=== PATIENT | female | born 1955 | race African-American/Black ===

== ENCOUNTER 2020-08-12 07:00 | Observation (INO) | payer MEDICARE ==
[2020-08-08 12:17] LABS: BASOPHILS % 0.7 % (0.0-1.0); EOSINOPHILS # (AUTO) 0.1 (0.0-0.4); EOSINOPHILS % 1.4 % (0.0-6.0); HEMATOCRIT 41.6 % (34.2-44.1); HEMOGLOBIN 13.8 g/dL (12.0-16.0); LYMPHOCYTES # (AUTO) 1.5 (1.0-3.2); LYMPHOCYTES % 33.9 % (18.0-39.1); MEAN CORPUSCULAR HEMOGLOBIN 25.8 pg (28-32); MEAN CORPUSCULAR HGB CONC 33.2 g/dL (31-35); MEAN CORPUSCULAR VOLUME 77.8 fL (81-99); MONOCYTES # (AUTO) 0.5 (0.2-0.8); MONOCYTES % 10.5 % (4.4-11.3); NEUTROPHILS # (AUTO) 2.3 (2.1-6.9); NEUTROPHILS % 53.3 % (38.7-80.0); PLATELET COUNT 303 x10e3/uL (140-360); RED BLOOD COUNT 5.35 x10e6/uL (3.6-5.1); RED CELL DISTRIBUTION WIDTH 15.2 % (11.7-14.4)
[2020-08-08 12:35] LABS: ANION GAP 14.5 mmol/L (8-16); BLOOD UREA NITROGEN 8 mg/dL (7-26); BUN/CREATININE RATIO 10 (6-25); CALCIUM 9.6 mg/dL (8.4-10.2); CARBON DIOXIDE 25 mmol/L (22-29); CHLORIDE 107 mmol/L (98-107); CREATININE, SERUM 0.77 mg/dL (0.57-1.11); EST GLOMERULAR FILTRATION RATE > 60 ML/MIN (60-); GLUCOSE 101 mg/dL (74-118); POTASSIUM 3.5 mmol/L (3.5-5.1); SODIUM 143 mmol/L (136-145)
[~2020-08-12] VITALS: Ht 160 cm; Wt 96.4 kg
[~2020-08-12 07:00] MED LIST: AMLODIPINE BESY10 MG PO; ASPIRIN81 MG PO; CEFAZOLIN SOD 1 GM/NS 50ML 100 ML IV ONE; CELECOXIB 200 MG CAP ONE; DEXAMETHASONE SOD PHOS 10 MG/1 ML VIAL ONE; DIOVAN160 MG PO; FERROUS GLUCONATE PO; GABAPENTIN 300 MG CAP ONE; HYDROCHLOROTHIA25 MG PO; SIMVASTATIN10 MG PO; SODIUM CHLORIDE 0.9% 500ML 500 ML ONE; TRANEXAMIC ACID 1,000 MG/10 ML ML ONE; VANCOMYCIN HCL 1,000 MG ONE
[2020-08-12] MEDS ORDERED: BUPIVACAINE 7.5MG/ML /DEXTROSE 82.5MG/ML 2 ML AMP INJ ONE (07:27)
[2020-08-12] MEDS ORDERED: ROPIVACAINE 246.25 MG, EPINEPHRINE HCL 1:1000 1ML 0.5 MG, CLONIDINE HCL 0.08 MG, KETORO... INJ ONE ×5 (07:30)
[2020-08-12] MEDS ORDERED: HYDROCODONE/APAP 5MG-325MG TAB PO PRN (09:30)
[2020-08-12] MEDS ORDERED: ONDANSETRON HCL INJ 2MG/ML 2ML 2 MG/ML VIAL IV PRN (09:30)
[2020-08-12] MEDS ORDERED: ACETAMINOPHEN 650 MG SUPP PR PRN (09:30)
[2020-08-12] MEDS ORDERED: KETOROLAC TROMETHAMINE 30 MG/ML VIAL IV PRN (09:30)
[2020-08-12] MEDS ORDERED: DIPHENHYDRAMINE HCL INJ 50 MG/ML VIAL IV PRN (09:30)
[2020-08-12] MEDS ORDERED: DOCUSATE SODIUM 100 MG CAP PO PRN (09:30)
[2020-08-12 12:05] VITALS: BP 136/77
[2020-08-12 12:06] VITALS: BP 136/77
[2020-08-12] MEDS: SODIUM CHLORIDE 0.9% 1000ML 1,000 ML IV SCH ×2 (12:43→21:24)
[2020-08-12] MEDS: ACETAMINOPHEN 1000 MG/100 ML IV SCH ×2 (12:44→18:07)
[2020-08-12 16:00] VITALS: BP 134/82
[2020-08-12] MEDS ORDERED: DEXAMETHASONE SOD PHOS INJ 4 MG/ML VIAL ONE (16:21)
[2020-08-12] MEDS ORDERED: LIDOCAINE HCL 2% LOCAL INJ 5 ML SDV VIAL INJ ONE (16:21)
[2020-08-12] MEDS ORDERED: PROPOFOL IV EMULSION 10 MG/ML 20 ML VIAL ONE (16:21)
[2020-08-12] MEDS ORDERED: EPHEDRINE SULFATE INJ 50 MG/ML VIAL ONE (16:21)
[2020-08-12] MEDS ORDERED: ONDANSETRON HCL INJ 2MG/ML 2ML 2 MG/ML VIAL ONE (16:21)
[2020-08-12] MEDS ORDERED: POVIDONE IODINE 0.05% 0.05 % ML PO ONE (16:21)
[2020-08-12] MEDS ORDERED: ROPIVACAINE 0.5% 5 MG/ML 30 ML SDV ONE (16:30)
[2020-08-12] MEDS ORDERED: MIDAZOLAM HCL 2 MG/2 ML VIAL ONE (16:34)
[2020-08-12] MEDS ORDERED: FENTANYL CITRATE/PF 100MCG/2 ML INJ ONE (16:34)
[2020-08-12] MEDS: ASPIRIN 325 MG TAB PO SCH (16:52)
[2020-08-12] MEDS: CELECOXIB 100 MG CAP PO SCH (16:52)
[2020-08-12] MEDS: CEFAZOLIN SOD 1 GM/NS 50ML 50 ML IV SCH ×2 (16:52→21:24)
[2020-08-12 20:00] VITALS: BP 134/82
[2020-08-12] MEDS ORDERED: SIMVASTATIN 20 MG TAB PO SCH (21:00)
[2020-08-12] MEDS ORDERED: ZOLPIDEM TARTRATE 5 MG TAB PO PRN (21:00)
[2020-08-12] MEDS ORDERED: NON-FORMULARY MEDICATION (Simvastatin 10 MG) PO SCH (21:00)
[2020-08-12 21:23] VITALS: BP 138/81
[2020-08-12] MEDS: HYDROCODONE/APAP 7.5MG-325MG 1 EA TAB PO PRN (21:24)
[2020-08-13] MEDS: ACETAMINOPHEN 1000 MG/100 ML IV SCH ×2 (00:53→05:22)
[2020-08-13 01:23] VITALS: BP 122/81
[2020-08-13 05:16] VITALS: BP 121/77
[2020-08-13 05:16] LABS: BASOPHILS % 0.1 % (0.0-1.0); HEMATOCRIT 33.3 % (34.2-44.1); HEMOGLOBIN 11.2 g/dL (12.0-16.0); LYMPHOCYTES % 14.6 % (18.0-39.1); MEAN CORPUSCULAR HEMOGLOBIN 25.7 pg (28-32); MEAN CORPUSCULAR HGB CONC 33.6 g/dL (31-35); MEAN CORPUSCULAR VOLUME 76.6 fL (81-99); MONOCYTES # (AUTO) 0.5 (0.2-0.8); MONOCYTES % 7.4 % (4.4-11.3); NEUTROPHILS # (AUTO) 5.5 (2.1-6.9); NEUTROPHILS % 77.6 % (38.7-80.0); PLATELET COUNT 226 x10e3/uL (140-360); RED BLOOD COUNT 4.35 x10e6/uL (3.6-5.1); RED CELL DISTRIBUTION WIDTH 14.6 % (11.7-14.4)
[2020-08-13] MEDS: SODIUM CHLORIDE 0.9% 1000ML 1,000 ML IV SCH (05:22)
[2020-08-13 05:35] LABS: ALANINE AMINOTRANSFERASE 14 IU/L (0-55); ALBUMIN 3.1 g/dL (3.5-5.0); ALBUMIN/GLOBULIN RATIO 0.8 (0.8-2.0); ALKALINE PHOSPHATASE 82 IU/L (40-150); ANION GAP 11.7 mmol/L (8-16); BLOOD UREA NITROGEN 14 mg/dL (7-26); BUN/CREATININE RATIO 19 (6-25); CALCIUM 8.7 mg/dL (8.4-10.2); CARBON DIOXIDE 23 mmol/L (22-29); CHLORIDE 110 mmol/L (98-107); CREATININE, SERUM 0.74 mg/dL (0.57-1.11); EST GLOMERULAR FILTRATION RATE > 60 ML/MIN (60-); GLUCOSE 119 mg/dL (74-118); POTASSIUM 3.7 mmol/L (3.5-5.1); SODIUM 141 mmol/L (136-145)
[2020-08-13 08:11] VITALS: BP 144/81
[2020-08-13] MEDS: CEFAZOLIN SOD 1 GM/NS 50ML 50 ML IV SCH (08:17)
[2020-08-13] MEDS: CELECOXIB 100 MG CAP PO SCH (08:18)
[2020-08-13] MEDS: ASPIRIN 325 MG TAB PO SCH (08:18)
[2020-08-13] MEDS ORDERED: HYDROCHLOROTHIAZIDE 25 MG TAB PO SCH (09:00)
[2020-08-13] MEDS ORDERED: AMLODIPINE BESYLATE 10 MG TAB PO SCH (09:00)
[2020-08-13] MEDS ORDERED: FERROUS GLUCONATE PO SCH (09:00)
[2020-08-13] MEDS ORDERED: VALSARTAN 160 MG TAB PO SCH (09:00)
[2020-08-13] MEDS: HYDROCODONE/APAP 7.5MG-325MG 1 EA TAB PO PRN (09:01)
[2020-08-13 09:06] VITALS: BP 144/81
[2020-08-13 11:50] VITALS: BP 139/74
== END 2020-08-13 12:06 | disposition home health service (06) ==
LOC: OR 07:00 → PACU V 09:21 → MED/SURG 11:26
PROVIDERS: ADMIT Specialist; ATTEND Specialist
DX: M17.12 Unilateral primary osteoarthritis, left knee (principal); I10 Essential (primary) hypertension; E78.5 Hyperlipidemia, unspecified; D64.9 Anemia, unspecified; E66.9 Obesity, unspecified; Z68.37 Body mass index [BMI] 37.0-37.9, adult; Z96.651 Presence of right artificial knee joint; Z79.82 Long term (current) use of aspirin; Z01.812 Encounter for preprocedural laboratory examination; Z01.818 Encounter for other preprocedural examination; Z20.822 Contact with and (suspected) exposure to COVID-19
CPT/HCPCS: 27447; 36415 ×2; 71046; 73560; 80048; 80053; 85025 ×2; 86850; 86900; 86920; 97116 ×2; 97139; 97161; 97530 ×2; C1713 ×2; C1776 ×2; G0378 ×2; J0131; J0171; J0690 ×2; J1100 ×2; J1200; J1885; J2001; J2250; J2405; J2704; J2795; J3010; J3370; J7030; J7040; U0002